=== PATIENT | male | born 1970 | race African-American/Black ===

== ENCOUNTER 2019-09-17 09:06 | Emergency (ER) | payer MEDICAID ==
[~2019-09-17] VITALS: Ht 182.9 cm; Wt 87.5 kg
[2019-09-17] MEDS ORDERED: ALBUTEROL SULFATE 2.5 MG/3 ML ONE (09:30)
[2019-09-17] MEDS ORDERED: ALBUTEROL SULFATE 2.5 MG/3 ML NPPB ONE (09:30)
[2019-09-17 10:21] VITALS: BP 144/97
== END 2019-09-17 11:35 | disposition home or self-care (01) ==
LOC: ED 10:30
DX: J44.1 Chronic obstructive pulmonary disease with (acute) exacerbation (principal); F17.210 Nicotine dependence, cigarettes, uncomplicated; I10 Essential (primary) hypertension
CPT/HCPCS: 71046; 93005; 94640; 99283; J7613

== ENCOUNTER 2019-10-09 15:13 | Emergency (ER) | payer MEDICAID ==
[~2019-10-09] VITALS: Ht 182.9 cm; Wt 86.0 kg
--- NOTE | 2019-10-09 16:20 | NUR ---
FIRST CONTACT WITH PT. PT WAS SENT FROM WITH HTN AND IRREGULAR EKG NO C/O CP. PT'S AOX4. RESPS EVEN AND UNLABORED. ALL MONITORS IN PLACE. CALL LIGHT WITHIN REACH.NSR RATE 80'S ON [employer] AT THIS TIME.
[2019-10-09] MEDS ORDERED: LISINOPRIL 20 MG TABLET ONE (16:42)
[2019-10-09 16:50] VITALS: BP 159/107
--- NOTE | 2019-10-09 16:51 | NUR ---
PT MEDICATED PER EMAR. PT TOLERATED WELL.
[2019-10-09] MEDS ORDERED: LISINOPRIL 20 MG TABLET PO ONE (17:00)
== END 2019-10-09 17:00 | disposition home or self-care (01) ==
LOC: ED 16:36
DX: I10 Essential (primary) hypertension (principal); J44.9 Chronic obstructive pulmonary disease, unspecified; F17.200 Nicotine dependence, unspecified, uncomplicated
CPT/HCPCS: 93005; 99283

== ENCOUNTER 2020-09-25 09:41 | Emergency (ER) | payer MEDICAID ==
[~2020-09-25] VITALS: Ht 182.9 cm; Wt 80.4 kg
--- NOTE | 2020-09-25 09:51 | NUR ---
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
--- NOTE | 2020-09-25 10:25 | NUR ---
LEFT CHEST PAIN, BLURRY VISION GRADUAL OVER LAST 2 WEEKS. SOB FOR LAST FEW DAYS. PT HAS NOT BEEN ON BP MEDS.
[2020-09-25] MEDS ORDERED: LISINOPRIL 20 MG TABLET PO ONE (11:00)
[2020-09-25] MEDS ORDERED: LISINOPRIL 20 MG TABLET ONE (11:16)
[2020-09-25 11:38] LABS: BASOPHILS % (AUTO) 1 % (0-1); EOSINOPHILS % (AUTO) 2 % (1-7); LYMPHOCYTES % (AUTO) 23 % (22-44); MD NO; MEAN CORPUSCULAR HEMOGLOBIN 31.8 pg (27.5-34.5); MEAN CORPUSCULAR HGB CONC 33.7 g/dL (33.2-36.2); MEAN PLATELET VOLUME 8.1 fL (7.4-10.4); MONOCYTES % (AUTO) 7 % (2-9); NEUTROPHILS % (AUTO) 68 % (42-75); PLATELET COUNT 297 x10^3/uL (130-400); RED BLOOD COUNT 4.19 x10^6/uL (4.38-5.82)
[2020-09-25 11:39] LABS: ALANINE AMINOTRANSFERASE 20 U/L (12-78); ALBUMIN 4.1 g/dL (3.4-5.0); ANION GAP 6 mmol/L (5-15); CALCIUM 8.8 mg/dL (8.5-10.1); CHLORIDE 106 mmol/L (98-107); CREATININE 1.09 mg/dL (0.7-1.3)
[2020-09-25 11:43] LABS: ALKALINE PHOSPHATASE 41 U/L (45-117); BILIRUBIN,TOTAL 1.1 mg/dL (0.2-1.0); TROPONIN I < 0.015 ng/mL (0.000-0.045)
[2020-09-25 11:51] VITALS: BP 144/91
--- NOTE | 2020-09-25 12:03 | NUR ---
FOOD TRAY PROVIDED PER EDP ORDER.
== END 2020-09-25 12:25 | disposition home or self-care (01) ==
LOC: ED 11:30
DX: R07.2 Precordial pain (principal); R06.00 Dyspnea, unspecified; I10 Essential (primary) hypertension; I25.10 Atherosclerotic heart disease of native coronary artery without angina pectoris; J44.9 Chronic obstructive pulmonary disease, unspecified; I25.2 Old myocardial infarction; Z91.14 Patient's other noncompliance with medication regimen
CPT/HCPCS: 36415; 71045; 80053; 84484; 85025; 93005; 99285